=== PATIENT | male | born 1960 | race Caucasian/White ===

== ENCOUNTER 2016-06-22 09:12 | Emergency (ER) | payer OTHER ==
[~2016-06-22] VITALS: Ht 170.2 cm; Wt 81.6 kg
[~2016-06-22 09:12] MED LIST: ASPI325T PO; CRES20TA PO; LANO0.252 PO; LISI40TAB PO; PEPC10TA PO
[2016-06-22] MEDS ORDERED: MAGN30TA2 PO (09:28)
[2016-06-22] MEDS ORDERED: SPIR25TA2 PO (09:28)
[2016-06-22] MEDS ORDERED: PEPC1TAB2 PO (09:28)
[2016-06-22 10:43] VITALS: BP 128/70
--- NOTE | 2016-06-22 15:09 | REP ---
CT Head without contrast HISTORY: Injury COMPARISON: None There is no intraparenchymal hemorrhage, acute infarct, mass or midline shift. The ventricular system is normal in appearance. There is no extra cerebral collection. There is no fracture. The visualized sinuses are clear. IMPRESSION: There is no intracranial lesion. Signed by Roe Trimble MD 06/22/2016 10:23 A
--- NOTE | 2016-06-22 15:12 | REP ---
CT CERVICAL SPINE WITHOUT CONTRAST: HISTORY: Injury. There is no acute fracture or subluxation. Disc bulges are present at the C3-4 through C6-7 levels. There is minimal narrowing of the spinal canal. The neural foramina are patent. The intervertebral discs are normal in height. Calcification is present anterior and posterior to the C5-6 intervertebral disc. This represents ligamentous or tendon calcification. Calcification is present in the tonsils. This is secondary to previous inflammatory disease. IMPRESSION: 1. There is no acute fracture or subluxation. 2. There is cervical spondylosis at the C3-4 through C6-7 levels. Signed by Roe Trimble MD 06/22/2016 03:56 P
== END 2016-06-22 10:48 | disposition home or self-care (01) ==
LOC: M ED 09:59
DX: S13.4XXA Sprain of ligaments of cervical spine, initial encounter (principal); S30.0XXA Contusion of lower back and pelvis, initial encounter; V21.4XXA Motorcycle driver injured in collision with pedal cycle in traffic accident, initial encounter; Y92.410 Unspecified street and highway as the place of occurrence of the external cause; Y93.89 Activity, other specified; Y99.8 Other external cause status; Z88.1 Allergy status to other antibiotic agents; Z79.82 Long term (current) use of aspirin; Z79.899 Other long term (current) drug therapy

== ENCOUNTER → 2016-07-16 | Outpatient (CLI) | payer OTHER ==
[~2016-07-16] MED LIST changes: +MAGN30TA2 PO; +PEPC1TAB2 PO; +SPIR25TA2 PO
== END ==
LOC: M LAB 08:32
PROVIDERS: ATTEND Physician Assistant
DX: I48.0 Paroxysmal atrial fibrillation (principal)

== ENCOUNTER 2016-12-13 01:15 | Emergency (ER) | payer OTHER ==
[~2016-12-13] VITALS: Ht 170.2 cm; Wt 81.8 kg
[2016-12-13] MEDS ORDERED: METOPROLOL 5 MG/5 ML VIAL IV STA ×3 (01:43→02:57)
[2016-12-13 02:20] VITALS: BP 126/67
[2016-12-13 02:27] LABS: BASO # 0.1 10^3/uL (0.0-0.2); BASO % 0.8 % (0.0-1.0); EOS # 0.2 10^3/uL (0.0-0.50); EOS % 2.5 % (0.0-3.0); IMMATURE GRANULOCYTE % 0.3 % (0-0); LYMPH # 2.5 10^3/uL (1.5-4.5); LYMPH % 35.5 % (24.0-44.0); MEAN CORPUSCULAR HEMOGLOBIN 30.9 pg (27.0-33.0); MEAN CORPUSCULAR HGB CONC 35.1 g/dl (32.0-36.5); MEAN CORPUSCULAR VOLUME 88.2 fl (80.0-96.0); MONO # 1.1 10^3/uL (0.0-0.8); NEUTROPHILS # 3.3 10^3/uL (1.8-7.7); NEUTROPHILS % 45.9 % (36.0-66.0); PLATELET COUNT, AUTOMATED 254 10^3/uL (150-450); RED CELL DISTRIBUTION WIDTH 11.9 % (11.5-14.5); WHITE BLOOD COUNT 7.1 10^3/uL (4.0-10.0)
[2016-12-13] MEDS ORDERED: METOPROLOL TART 25 MG TABLET PO ONE (02:45)
[2016-12-13 02:59] LABS: ANION GAP 6 MEQ/L (8-16); BLOOD UREA NITROGEN 18 MG/DL (7-18); CALCIUM LEVEL 9.4 MG/DL (8.5-10.1); CARBON DIOXIDE LEVEL 29 MEQ/L (21-32); CHLORIDE LEVEL 104 MEQ/L (98-107); CREATININE FOR GFR 0.91 MG/DL (0.70-1.30); GLOMERULAR FILTRATION RATE > 60.0 (>56); GLUCOSE, FASTING 129 MG/DL (70-105); POTASSIUM SERUM 4.3 MEQ/L (3.5-5.1); SODIUM LEVEL 139 MEQ/L (136-145)
[2016-12-13 03:11] LABS: DIGOXIN LEVEL 0.7 NG/ML (0.5-2.0)
[2016-12-13 03:41] VITALS: BP 114/68
--- NOTE | 2016-12-13 07:21 | ECGEPIP ---
Stationary ECG Study [facility] - ED Test Date: 2016-12-13 Pat Name: ABE MCKINNON Department: Room: - Gender: M Record Maker: ana : 1960 Requested By: RICH MACEDO Order Number: [id number] Reading MD: Jace Rojas Measurements Intervals [place] Rate: 139 P: 7 PA: 76 QRS: -17 QRSD: 88 T: 48 QT: 277 QTc: 421 Interpretive Statements SINUS TACHYCARDIA WITH SHORT PA INTERVAL MODERATE ST DEPRESSION RATE CHANGE COMPARED TO 11/17/14 Electronically Signed On 12-13-2016 7:21:21 EDT by Jace Rojas
--- NOTE | 2016-12-13 07:22 | ECGEPIP ---
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
== END 2016-12-13 03:42 | disposition home or self-care (01) ==
LOC: M ED 01:15
DX: R00.1 Bradycardia, unspecified (principal); R00.0 Tachycardia, unspecified; I25.10 Atherosclerotic heart disease of native coronary artery without angina pectoris; Z87.442 Personal history of urinary calculi; Z95.5 Presence of coronary angioplasty implant and graft; Z87.891 Personal history of nicotine dependence; Z79.82 Long term (current) use of aspirin; Z79.899 Other long term (current) drug therapy; Z88.1 Allergy status to other antibiotic agents

== ENCOUNTER → 2017-04-10 | Outpatient (CLI) | payer OTHER | LOC: M RAD 06:43 | DX: M47.892 Other spondylosis, cervical region (principal) | CPT/HCPCS: 72141 ==

== ENCOUNTER → 2018-06-26 | Outpatient (CLI) | payer BC ==
[~2018-06-26] MED LIST changes: +LISI40TA52 PO; -LISI40TAB PO; -PEPC1TAB2 PO; +PEPC40TA12 PO; +SPIR-10 PO; -SPIR25TA2 PO
--- NOTE | 2018-06-26 15:45 | REP ---
UNILATERAL RIGHT RIBS, PA CHEST, SEVEN VIEWS: HISTORY: Contusion. COMPARISON: 11/17/2014 A calcified granuloma is present in the left lower lobe. The right lung is clear. The heart is normal in size. The pulmonary vasculature is normal in appearance. The bony structure is intact. IMPRESSION: No acute disease. Electronically Signed by Roe Trimble MD 06/26/2018 03:50 P
--- NOTE | 2018-06-26 15:52 | REP ---
THORACIC SPINE, THREE VIEWS: HISTORY: Contusion. There is no acute fracture or subluxation. There is loss of height in several mid and lower thoracic intervertebral discs. Osteophytes are present in the lower thoracic spine. IMPRESSION: Degenerative change as described above. Electronically Signed by Roe Trimble MD 06/26/2018 03:54 P
== END ==
LOC: M WUC 13:55
PROVIDERS: ATTEND Physician Assistant
DX: S20.211A Contusion of right front wall of thorax, initial encounter (principal); X58.XXXA Exposure to other specified factors, initial encounter; Y92.89 Other specified places as the place of occurrence of the external cause; M25.78 Osteophyte, vertebrae; M51.34 Other intervertebral disc degeneration, thoracic region

== ENCOUNTER → 2018-09-29 | Outpatient (REF) | payer BC ==
[2018-09-29 14:34] LABS: BLOOD UREA NITROGEN 15 MG/DL (7-18); CREATININE FOR GFR 0.85 MG/DL (0.70-1.30); GLOMERULAR FILTRATION RATE > 60.0 (>56)
== END ==
LOC: M LABDRAW1 12:08
PROVIDERS: ATTEND Physician Assistant
DX: M47.896 Other spondylosis, lumbar region (principal)

== ENCOUNTER → 2018-12-07 | Outpatient (CLI) | payer BC ==
[2018-12-07 16:27] LABS: HEMATOCRIT 44.8 % (42.0-52.0); HEMOGLOBIN 15.4 g/dl (13.5-17.5); MEAN CORPUSCULAR HEMOGLOBIN 31.7 pg (27.0-33.0); MEAN CORPUSCULAR HGB CONC 34.4 g/dl (32.0-36.5); MEAN CORPUSCULAR VOLUME 92.2 fl (80.0-96.0); PLATELET COUNT, AUTOMATED 224 10^3/uL (150-450); RED BLOOD COUNT 4.86 10^6/uL (4.30-6.10); WHITE BLOOD COUNT 6.4 10^3/uL (4.0-10.0)
[2018-12-07 16:34] LABS: BLOOD UREA NITROGEN 18 MG/DL (7-18); CALCIUM LEVEL 9.2 MG/DL (8.5-10.1); CARBON DIOXIDE LEVEL 30 MEQ/L (21-32); CHLORIDE LEVEL 103 MEQ/L (98-107); CREATININE FOR GFR 0.97 MG/DL (0.70-1.30); GLOMERULAR FILTRATION RATE > 60.0 (>56); GLUCOSE, FASTING 194 MG/DL (70-100); MAGNESIUM LEVEL 1.9 MG/DL (1.8-2.4); POTASSIUM SERUM 5.1 MEQ/L (3.5-5.1); SODIUM LEVEL 137 MEQ/L (136-145); THYROID STIMULATING HORMONE 0.702 uIU/ML (0.358-3.740)
== END ==
LOC: M WUC 11:25
PROVIDERS: ATTEND Physician Assistant
DX: I48.0 Paroxysmal atrial fibrillation (principal)

== ENCOUNTER → 2019-02-11 | Outpatient (CLI) | payer BC ==
[2019-02-11 11:55] LABS: PLATELET COUNT, AUTOMATED 253 10^3/uL (150-450)
[2019-02-11 12:06] LABS: INR 1.08; PROTHROMBIN TIME 13.7 SECONDS (11.8-14.0)
[2019-02-11 12:08] LABS: PARTIAL THROMBOPLASTIN TIME 30.8 SECONDS (25.0-38.4)
== END ==
LOC: M WUC 09:27
PROVIDERS: ATTEND Physician Assistant
DX: Z01.812 Encounter for preprocedural laboratory examination (principal); M47.27 Other spondylosis with radiculopathy, lumbosacral region

== ENCOUNTER 2019-10-18 04:31 | Emergency (ER) | payer BC ==
[~2019-10-18] VITALS: Ht 170.2 cm; Wt 81.8 kg
[2019-10-18] MEDS ORDERED: METOPROLOL 5 MG/5 ML VIAL IV STA ×4 (05:06→05:46)
[2019-10-18] MEDS ORDERED: METOPROLOL 5 MG/5 ML VIAL As Ordered ONE (05:07)
[2019-10-18 05:24] LABS: BASO # 0.1 10^3/uL (0.0-0.2); BASO % 1.1 % (0.0-1.0); EOS # 0.2 10^3/uL (0.0-0.5); EOS % 2.4 % (0.0-3.0); HEMATOCRIT 45.7 % (42.0-52.0); HEMOGLOBIN 16.1 g/dl (13.5-17.5); LYMPH # 2.5 10^3/uL (1.5-5.0); LYMPH % 38.3 % (24.0-44.0); MEAN CORPUSCULAR HEMOGLOBIN 30.8 pg (27.0-33.0); MEAN CORPUSCULAR HGB CONC 35.2 g/dl (32.0-36.5); MEAN CORPUSCULAR VOLUME 87.4 fl (80.0-96.0); MONO # 0.9 10^3/uL (0.0-0.8); NEUTROPHILS % 44.9 % (36.0-66.0); PLATELET COUNT, AUTOMATED 242 10^3/uL (150-450); RED BLOOD COUNT 5.23 10^6/uL (4.30-6.10); WHITE BLOOD COUNT 6.6 10^3/uL (4.0-10.0)
[2019-10-18 05:53] LABS: BLOOD UREA NITROGEN 19 MG/DL (7-18); CALCIUM LEVEL 9.8 MG/DL (8.8-10.2); CARBON DIOXIDE LEVEL 27 MEQ/L (21-32); CHLORIDE LEVEL 103 MEQ/L (98-107); CREATININE FOR GFR 1.04 MG/DL (0.70-1.30); DIGOXIN LEVEL 0.7 NG/ML (0.5-2.0); GLOMERULAR FILTRATION RATE > 60.0 (>49); GLUCOSE, FASTING 200 MG/DL (70-100); POTASSIUM SERUM 4.6 MEQ/L (3.5-5.1); SODIUM LEVEL 138 MEQ/L (136-145)
[2019-10-18] MEDS ORDERED: METOPROLOL TART 50 MG TAB PO ONE ×2 (06:00→06:45)
[2019-10-18] MEDS ORDERED: DIGOXIN INJ 0.5 MG/2 ML AMP (J1160) IV STA (06:25)
[2019-10-18 06:47] VITALS: BP 120/79
[2019-10-18] MEDS ORDERED: NS 1,000 ML IV ONE (07:00)
[2019-10-18] MEDS ORDERED: DIGOXIN INJ 0.5 MG/2 ML AMP (J1160) IV ONE (07:30)
[2019-10-18 07:40] LABS: TROPONIN I < 0.02 NG/ML (< 0.10)
[2019-10-18 08:04] LABS: MAGNESIUM LEVEL 1.9 MG/DL (1.8-2.4)
[2019-10-18] MEDS ORDERED: AMIODARONE HCL 150 MG in IV 1 EA IV STA (09:06)
[2019-10-18] MEDS ORDERED: AMIODARONE 200 MG TAB (PACERONE) PO ONE (09:15)
[2019-10-18 09:16] LABS: HEMOGLOBIN A1c 7.6 %
[2019-10-18] MEDS ORDERED: ACETAMINOPHEN TAB 650MG DOSE (2X325MG) PO ONE (12:30)
[2019-10-18] MEDS ORDERED: METF500T13 PO (13:19)
[2019-10-18] MEDS ORDERED: ELIQ5TAB PO (13:19)
[2019-10-18] MEDS ORDERED: APIXABAN 5 MG TAB (ELIQUIS) PO ONE (13:30)
[2019-10-18 14:03] VITALS: BP 109/58
--- NOTE | 2019-11-07 12:19 | ECGEPIP ---
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
--- NOTE | 2019-11-09 08:00 | ECGEPIP ---
[facility] - ED Test Date: 2019-10-18 Pat Name: ABE MCKINNON Department: Room: - Gender: Male Bobbin Doffer: star : 1960 Requested By: Jace Denton Order Number: [id number] Reading MD: Jace Rojas Measurements Intervals [place] Rate: 39 P: 69 MO: 169 QRS: -5 QRSD: 109 T: 6 QT: 361 QTc: 294 Interpretive Statements SINUS BRADYCARDIA NONSPECIFIC T WAVE ABNORMALITY SEE SCANNED DOWNTIME REPORT
--- NOTE | 2019-11-16 09:10 | REP ---
PORTABLE CHEST X-RAY: HISTORY: Chest pain. TECHNIQUE: Portable. FINDINGS: Mediastinum and cardiac silhouette are normal. Lung pelayo are clear. No acute consolidation, effusion or pneumothorax. Skeletal structures are intact. IMPRESSION: Normal portable chest x-ray. No focal consolidation. MTDD
== END 2019-10-18 14:04 | disposition home or self-care (01) ==
LOC: M ED 04:31
DX: I48.91 Unspecified atrial fibrillation (principal); E11.9 Type 2 diabetes mellitus without complications; I25.10 Atherosclerotic heart disease of native coronary artery without angina pectoris; R94.31 Abnormal electrocardiogram [ECG] [EKG]; I10 Essential (primary) hypertension; E78.5 Hyperlipidemia, unspecified; Z88.1 Allergy status to other antibiotic agents; Z79.01 Long term (current) use of anticoagulants; Z79.84 Long term (current) use of oral hypoglycemic drugs; Z79.899 Other long term (current) drug therapy
CPT/HCPCS: 71045; 80048; 80162; 83036; 83735; 84484; 85025; 93005; 96361; 96375; 96376; 99284; J0282; J1160

== ENCOUNTER → 2020-08-02 | Outpatient (CLI) | payer BC ==
[~2020-08-02] MED LIST changes: +ELIQ5TAB PO; +METF500T13 PO
[2020-08-02 12:34] LABS: BASO # 0.1 10^3/uL (0.0-0.2); BASO % 0.7 % (0.0-1.0); EOS # 0.1 10^3/uL (0.0-0.5); HEMATOCRIT 45.6 % (42.0-52.0); HEMOGLOBIN 15.5 g/dl (13.5-17.5); LYMPH # 2.2 10^3/uL (1.5-5.0); LYMPH % 30.5 % (24.0-44.0); MEAN CORPUSCULAR HEMOGLOBIN 30.5 pg (27.0-33.0); MEAN CORPUSCULAR VOLUME 89.8 fl (80.0-96.0); MONO # 0.9 10^3/uL (0.0-0.8); MONO % 12.2 % (2.0-8.0); NEUTROPHILS # 3.8 10^3/uL (1.5-8.5); NEUTROPHILS % 54.3 % (36.0-66.0); PLATELET COUNT, AUTOMATED 244 10^3/uL (150-450); RED BLOOD COUNT 5.08 10^6/uL (4.30-6.10)
[2020-08-02 13:23] LABS: ERYTHROCYTE SEDIMENTATION RATE 4 mm/hr (0-20)
[2020-08-02 16:56] LABS: ALBUMIN 4.2 GM/DL (3.2-5.2); ALT/SGPT 60 U/L (12-78); BILIRUBIN,TOTAL 0.6 MG/DL (0.2-1.0); BLOOD UREA NITROGEN 15 MG/DL (7-18); CALCIUM LEVEL 9.8 MG/DL (8.8-10.2); CARBON DIOXIDE LEVEL 24 MEQ/L (21-32); CHLORIDE LEVEL 103 MEQ/L (98-107); CREATININE FOR GFR 0.95 MG/DL (0.70-1.30); GLOMERULAR FILTRATION RATE > 60.0 (>49); GLUCOSE, FASTING 157 MG/DL (70-100); POTASSIUM SERUM 4.6 MEQ/L (3.5-5.1); SODIUM LEVEL 136 MEQ/L (136-145); TOTAL PROTEIN 7.9 GM/DL (6.4-8.2)
[2020-08-03 17:07] LABS: HERPES ZOSTER, VARICELLA IgG 997 index (Immune >165); HERPES ZOSTER, VARICELLA IgM <0.91 index (0.00-0.90); Lyme Disease IgG/IgM Antibodie <0.91 ISR (0.00-0.90); Lyme Disease IgM Ab Quantitati <0.80 index (0.00-0.79)
== END ==
LOC: M WUC 08:56
PROVIDERS: ATTEND Physician Assistant
DX: R21 Rash and other nonspecific skin eruption (principal)

== ENCOUNTER 2024-06-23 04:04 | Emergency (ER) | payer BC, OTHER ==
[~2024-06-23] VITALS: Ht 170.2 cm; Wt 84.5 kg
[2024-06-23 04:07] VITALS: TEMP 98.1
[2024-06-23 04:33] LABS: BASO # 0.1 10^3/uL (0.0-0.2); BASO % 0.8 % (0.0-1.0); EOS # 0.2 10^3/uL (0.0-0.5); HEMATOCRIT 45.4 % (42.0-52.0); HEMOGLOBIN 15.6 g/dl (13.5-17.5); LYMPH # 1.9 10^3/uL (1.5-5.0); LYMPH % 25.9 % (24.0-44.0); MEAN CORPUSCULAR HEMOGLOBIN 30.7 pg (27.0-33.0); MEAN CORPUSCULAR HGB CONC 34.4 g/dl (32.0-36.5); MEAN CORPUSCULAR VOLUME 89.4 fl (80.0-96.0); MONO % 12.9 % (2.0-8.0); NEUTROPHILS # 4.3 10^3/uL (1.5-8.5); NEUTROPHILS % 58.1 % (36.0-66.0); PLATELET COUNT, AUTOMATED 230 10^3/uL (150-450); RED BLOOD COUNT 5.08 10^6/uL (4.30-6.10); WHITE BLOOD COUNT 7.4 10^3/uL (4.0-10.0)
[2024-06-23 05:06] LABS: BLOOD UREA NITROGEN 18 MG/DL (9-23); CALCIUM LEVEL 9.7 MG/DL (8.3-10.6); CARBON DIOXIDE LEVEL 26 MMOL/L (20-31); CHLORIDE LEVEL 103 MMOL/L (98-107); CK-MB VALUE MASS < 1.0 NG/ML (<3.6); CREATININE FOR GFR 0.93 MG/DL (0.70-1.30); GLOMERULAR FILTRATION RATE > 90.0 (>49); GLUCOSE, FASTING 213 MG/DL (74-106); POTASSIUM SERUM 4.4 MMOL/L (3.5-5.1); SODIUM LEVEL 138 MMOL/L (136-145)
[2024-06-23 05:23] VITALS: BP 135/96
[2024-06-23] MEDS: METOPROLOL TART 50 MG TAB PO ONE (05:23)
[2024-06-23 05:25] LABS: ALKALINE PHOSPHATASE 128 U/L (40-129); ALT/SGPT 36 U/L (7.0-40); AST/SGOT 26 U/L (<34); BILIRUBIN,DIRECT < 0.1 MG/DL (<0.4); BILIRUBIN,TOTAL 0.4 MG/DL (0.3-1.2); MAGNESIUM LEVEL 1.6 MG/DL (1.8-2.4); TOTAL PROTEIN 7.4 G/DL (5.7-8.2)
[2024-06-23 05:31] LABS: CPK CREATINE PHOSPHOKINASE 189 U/L (46-171); MB/CK RELATIVE INDEX 0.52 (< OR =4)
[2024-06-23 06:13] LABS: CK-MB VALUE MASS 1.3 NG/ML (<3.6)
[2024-06-23 06:19] LABS: MB/CK RELATIVE INDEX 0.73 (< OR =4)
[2024-06-23] MEDS: DIGOXIN 0.25 MG TAB PO ONE (08:04)
[2024-06-23 08:09] LABS: INR 0.94; PROTHROMBIN TIME 12.8 SECONDS (12.5-14.5)
[2024-06-23] MEDS: APIXABAN 5 MG TAB (ELIQUIS) PO ONE (09:26)
[2024-06-23 09:30] VITALS: BP 138/76; O2SAT 95
[2024-06-23] MEDS ORDERED: METO50TA7 PO (09:53)
== END 2024-06-23 11:06 | disposition home or self-care (01) ==
LOC: M ED 04:04
DX: I48.91 Unspecified atrial fibrillation (principal); I45.10 Unspecified right bundle-branch block; I44.4 Left anterior fascicular block; E78.5 Hyperlipidemia, unspecified; I10 Essential (primary) hypertension; K21.9 Gastro-esophageal reflux disease without esophagitis; Z86.79 Personal history of other diseases of the circulatory system; Z88.1 Allergy status to other antibiotic agents; Z79.01 Long term (current) use of anticoagulants; Z79.4 Long term (current) use of insulin; Z79.899 Other long term (current) drug therapy

== ENCOUNTER → 2024-06-28 | Outpatient (CLI) | payer OTHER ==
[~2024-06-28] MED LIST changes: +METO50TA7 PO
== END ==
LOC: M PLAIMG 10:24
PROVIDERS: ATTEND Physician Assistant
DX: I34.0 Nonrheumatic mitral (valve) insufficiency (principal); I77.810 Thoracic aortic ectasia